=== PATIENT | female | born 1995 | race Caucasian/White ===

== ENCOUNTER 2020-02-24 09:10 | Observation (INO) | payer MEDICAID ==
[2020-02-25] MEDS ORDERED: PREN-96 PO (21:58)
[2020-02-25] MEDS ORDERED: IRON150T2 PO (21:58)
== END 2020-02-24 11:10 | disposition home or self-care (01) | DRG 566 ==
LOC: LDRP 09:10
PROVIDERS: ADMIT Obstetrics & Gynecology; ATTEND Obstetrics & Gynecology
DX: O36.5930 Maternal care for other known or suspected poor fetal growth, third trimester, not applicable or unspecified (principal); Z3A.40 40 weeks gestation of pregnancy
CPT/HCPCS: 76818; 81002; G0378

== ENCOUNTER 2020-02-24 20:19 | Inpatient (IN) | payer MEDICAID ==
[~2020-02-24] VITALS: Ht 165.1 cm; Wt 73.0 kg
[2020-02-24] MEDS ORDERED: LACT. RINGERS/OXYTOCIN 20UNITS 1,000 ML IV SCH (20:24)
[2020-02-24] MEDS ORDERED: LACTATED RINGER'S 1,000 ML IV SCH (20:24)
[2020-02-24] MEDS ORDERED: METHYLERGONOVINE MALEATE 0.2 MG/ML AMP IM PRN (20:30)
[2020-02-24] MEDS ORDERED: PHISODERM TOP SOLN 240ML BTL TOP PRN (20:30)
[2020-02-24] MEDS ORDERED: LIDOCAINE 2%HCL (LOCAL ANESTH.) INJ 20ML MDV ID ONE (20:30)
[2020-02-24] MEDS ORDERED: PENICILLIN G POT 5MIL/D5 50ML 50 ML IV ONE (20:30)
[2020-02-24] MEDS ORDERED: WITCH HAZEL-GLYCERIN PAD TOP PRN (20:30)
[2020-02-24] MEDS ORDERED: DERMOPLAST 60ML BOTTLE TOP PRN (20:30)
[2020-02-24] MEDS ORDERED: miSOPROStol 50 MCG per PRE-CUT 1/2 TAB PO PRN (21:00)
[2020-02-24 21:29] LABS: Basophils # (auto) 0 10 ^3/uL (0-0.2); Basophils % (auto) 0.1 % (0.0-2.0); Eosinophils # (auto) 0 10 ^3/uL (0-0.8); Eosinophils % (auto) 0.5 % (0.0-7.0); Hematocrit 35.7 % (36.0-46.0); Hemoglobin 11.6 g/dL (12.2-16.2); Lymphocytes # (auto) 1.5 10 ^3/uL (0.4-5.4); Lymphocytes % (auto) 18.7 % (10.0-50.0); Mean Corpuscular Hemoglobin 27.1 pg (28.0-32.0); Mean Corpuscular Hgb Conc. 32.4 g/dL (32.0-36.0); Mean Corpuscular Volume 83.6 fL (80.0-100.0); Monocytes # (auto) 0.5 10 ^3/uL (0-1.3); Monocytes % (auto) 5.8 % (0.0-12.0); Neutrophils # (auto) 5.8 10 ^3/uL (1.6-8.6); Neutrophils % (auto) 74.9 % (37.0-80.0); Platelet Count (auto) 205 10^3/uL (140-450); Red Blood Cells 4.27 10^6/uL (4.0-5.20); Red Cell Distribution Width 16.2 % (11.8-14.3); White Blood Cell 7.8 10^3/uL (4.4-10.8)
[2020-02-24 21:34] LABS: Urine Bacteria NONE SEEN /hpf (None Seen); Urine Blood Negative /uL (Negative); Urine Hyaline Cast FEW /lpf (0 - 2); Urine Mucus FEW (None Seen); Urine Specific Gravity 1.026 (1.001-1.035); Urine WBC 5 /hpf (0 - 5)
[2020-02-24 21:43] LABS: INR 0.98 (0.9-1.15); Partial Thromboplastin Time 22.8 sec (23.64-32.05)
[2020-02-24 21:46] LABS: Amphetamine Screen, Urine NEGATIVE (NEGATIVE); Barbiturate Scree,Urine NEGATIVE (NEGATIVE); Benzodiazephine Screen, Urine NEGATIVE (NEGATIVE); Cannabinoid Screen, Urine NEGATIVE (NEGATIVE); Cocaine Screen, Urine NEGATIVE (NEGATIVE); Opiate Scree,Urine NEGATIVE (NEGATIVE); Phencyclidine Screen, Urine NEGATIVE (NEGATIVE)
[2020-02-24 21:47] LABS: Albumin 2.8 g/dL (3.4-5.0); Calcium 8.4 mg/dL (8.5-10.1); Potassium 3.5 mmol/L (3.5-5.1); Uric Acid 2.6 mg/dL (2.6-6.0)
[2020-02-24 21:50] LABS: BUN/Creatinine Ratio 13.8; Bilirubin, Total 0.4 mg/dL (0.2-1.0); Total Protein 7.1 g/dL (6.4-8.2)
[2020-02-25] MEDS ORDERED: fentaNYL 200mCg/100ml W ROPIVA 100 ML EPI SCH ×3 (02:00→03:00)
[2020-02-25] MEDS ORDERED: LIDOCAINE HCL 2 %PF INJ 10ML AMP IJ ONE (02:00)
[2020-02-25] MEDS ORDERED: fentaNYL CITRATE 100 MCG/2 ML VL IV ONE (02:00)
[2020-02-25] MEDS ORDERED: SODIUM CHLORIDE 0.9% 500 ML IV PRN (02:52)
[2020-02-25] MEDS ORDERED: LACTATED RINGER'S 1,000 ML IV ONE (02:52)
[2020-02-25] MEDS: PENICILLIN G POTASSIUM 2,500,000 UNITS in D5W 5% 50 ML IV SCH ×2 (02:53→04:30)
[2020-02-25] MEDS ORDERED: ePHEDrine SULFATE 50 MG/ML AMP IV ONE ×2 (03:00)
[2020-02-25] MEDS ORDERED: LIDOCAINE W/ EPINEPHRINE 1 % INJ 30ML IJ ONE (03:00)
[2020-02-25] MEDS ORDERED: NALOXONE HCL 0.4 MG/ML VIAL IV ONE ×2 (03:00)
[2020-02-25] MEDS ORDERED: ACETAMINOPHEN 325 MG TAB PO PRN (06:45)
[2020-02-25 07:08] VITALS: BP 106/68
[2020-02-25 10:32] VITALS: BP 97/54
[2020-02-25 10:36] LABS: Alcohol, Urine < 3.0 mg/dL (0-5); Amphetamine Screen, Urine NEGATIVE (NEGATIVE); Barbiturate Scree,Urine NEGATIVE (NEGATIVE); Benzodiazephine Screen, Urine NEGATIVE (NEGATIVE); Cannabinoid Screen, Urine NEGATIVE (NEGATIVE); Cocaine Screen, Urine NEGATIVE (NEGATIVE); Opiate Scree,Urine NEGATIVE (NEGATIVE); Phencyclidine Screen, Urine NEGATIVE (NEGATIVE)
[2020-02-25 14:10] VITALS: BP 100/58
[2020-02-25] MEDS: IBUPROFEN 600 MG TAB PO PRN ×2 (18:10→22:31)
[2020-02-25 19:00] VITALS: BP 104/61
[2020-02-25] MEDS ORDERED: IRON150T2 PO (21:58)
[2020-02-25] MEDS ORDERED: PREN-96 PO (21:58)
[2020-02-25 23:00] VITALS: BP 102/63
[2020-02-26] MEDS: IBUPROFEN 600 MG TAB PO PRN (02:57)
[2020-02-26 03:00] VITALS: BP 104/61
[2020-02-26 04:06] LABS: RPR Non Reactive (Non Reactive)
[2020-02-26 06:28] VITALS: BP 101/56
[2020-02-26 09:18] VITALS: BP 106/72
== END 2020-02-26 10:30 | disposition home or self-care (01) | DRG 560 ==
LOC: LDRP 20:19
PROVIDERS: ADMIT Obstetrics & Gynecology; ATTEND Obstetrics & Gynecology
PROC: 00HU33Z Insertion of Infusion Device into Spinal Canal, Percutaneous Approach (ICD-10-PCS; principal; 2020-02-25)
PROC: 10E0XZZ Delivery of Products of Conception, External Approach (ICD-10-PCS; 2020-02-25)
PROC: 0HQ9XZZ Repair Perineum Skin, External Approach (ICD-10-PCS; 2020-02-25)
PROC: 3E0R3BZ Introduction of Anesthetic Agent into Spinal Canal, Percutaneous Approach (ICD-10-PCS; 2020-02-25)
DX: O69.81X0 Labor and delivery complicated by cord around neck, without compression, not applicable or unspecified (principal); O36.5930 Maternal care for other known or suspected poor fetal growth, third trimester, not applicable or unspecified; Z37.0 Single live birth; Z3A.40 40 weeks gestation of pregnancy; O70.0 First degree perineal laceration during delivery
CPT/HCPCS: 36415; 51702; 59025; 59409; 62282; 80053; 80307; 81001; 81002; 84112; 84550; 85025; 85610; 85730; 86592; 86850; 86900; 86901; 94760; 96365; 96366; G0378; J2540; J2590; J7060

== ENCOUNTER 2021-03-26 05:25 | Observation (INO) | payer MEDICAID ==
[~2021-03-26] VITALS: Ht 165.1 cm; Wt 72.6 kg
[~2021-03-26 05:25] MED LIST: IRON150T2 PO; PREN-96 PO
[2021-03-26] MEDS ORDERED: TERBUTALINE SULFATE 1 MG/ML 1ML VIAL SC SCH (06:45)
[2021-03-26] MEDS ORDERED: LACTATED RINGER'S 1,000 ML IV ONE (06:45)
[2021-03-26] MEDS ORDERED: TERBUTALINE SULFATE 1 MG/ML 1ML VIAL SC ONE (06:56)
[2021-03-26 07:36] LABS: Basophils # (auto) 0 10 ^3/uL (0-0.2); Basophils % (auto) 0.1 % (0.0-2.0); Eosinophils # (auto) 0.1 10 ^3/uL (0-0.8); Hemoglobin 8.6 g/dL (12.2-16.2); Mean Corpuscular Hemoglobin 23.3 pg (28.0-32.0); Mean Corpuscular Volume 72.6 fL (80.0-100.0); Neutrophils # (auto) 3.5 10 ^3/uL (1.6-8.6); Platelet Count (auto) 172 10^3/uL (140-450)
[2021-03-26 07:38] LABS: Eosinophils % (auto) 0.8 % (0.0-7.0); Hematocrit 26.7 % (36.0-46.0); Lymphocytes % (auto) 34.1 % (10.0-50.0); Mean Corpuscular Hgb Conc. 32.1 g/dL (32.0-36.0); Monocytes # (auto) 0.4 10 ^3/uL (0-1.3); Monocytes % (auto) 6.1 % (0.0-12.0); Neutrophils % (auto) 58.9 % (37.0-80.0); Red Blood Cells 3.68 10^6/uL (4.0-5.20); Red Cell Distribution Width 16.7 % (11.8-14.3)
[2021-03-26 07:51] LABS: Albumin 2.5 g/dL (3.4-5.0); Calcium 8.2 mg/dL (8.5-10.1); Potassium 3.5 mmol/L (3.5-5.1)
[2021-03-26 07:56] LABS: BUN/Creatinine Ratio 16.7; Bilirubin, Total 0.3 mg/dL (0.2-1.0); Total Protein 6.8 g/dL (6.4-8.2)
[2021-03-26 08:20] LABS: INR 0.95 (0.9-1.15); Partial Thromboplastin Time 21.7 sec (23.0-31.2)
[2021-03-26] MEDS ORDERED: ceFAZolin 1GM/50ML 0 ML IV ONE (08:39)
[2021-03-26] MEDS ORDERED: AMPICILLIN SOD 1 GM VL ONE (08:40)
[2021-03-26] MEDS ORDERED: AMPICILLIN INJ 1 GM in SODIUM CHL 0.9% 50 ML IV ONE (09:00)
[2021-03-26] MEDS ORDERED: BETAMETHASONE ACET (6MG/ML) 5ML VIAL IM SCH (10:00)
== END 2021-03-26 09:50 | disposition short-term general hospital (02) ==
LOC: LDRP 05:25
PROVIDERS: ADMIT Obstetrics & Gynecology; ATTEND Obstetrics & Gynecology
DX: O42.913 Preterm premature rupture of membranes, unspecified as to length of time between rupture and onset of labor, third trimester (principal); Z20.822 Contact with and (suspected) exposure to COVID-19; Z3A.36 36 weeks gestation of pregnancy
CPT/HCPCS: 36415; 59025; 76805; 76818; 80053; 81002; 84112; 85025; 85610; 85730; 86850; 86900; 86901; 87426; 94760; 96360; 96372; G0378; J0290; J0702; J3105; Q0114; U0003; 96361; 96365; 96366; J0690

== ENCOUNTER 2023-08-29 08:52 | Inpatient (IN) | payer MEDICAID ==
[~2023-08-29] VITALS: Ht 165.1 cm; Wt 68.0 kg
[2023-08-29] MEDS ORDERED: LACTATED RINGER'S 1,000 ML IV SCH (09:30)
[2023-08-29] MEDS ORDERED: BUTORPHANOL TARTRATE 2 MG/1 ML VIAL IV PRN ×2 (09:30)
[2023-08-29] MEDS ORDERED: WITCH HAZEL-GLYCERIN PAD TOP PRN (09:30)
[2023-08-29] MEDS ORDERED: LIDOCAINE 2%HCL (LOCAL ANESTH.) INJ 20ML MDV IJ PRN (09:30)
[2023-08-29] MEDS ORDERED: LACT. RINGERS/OXYTOCIN 20UNITS 500 ML IV ONE ×2 (09:30→10:00)
[2023-08-29] MEDS ORDERED: PROMETHAZINE HCL 25 MG/ML 1ML IV PRN (09:30)
[2023-08-29] MEDS ORDERED: DERMOPLAST 60ML BOTTLE TOP PRN (09:30)
[2023-08-29] MEDS ORDERED: PHISODERM TOP SOLN 240ML BTL TOP PRN (09:30)
[2023-08-29] MEDS ORDERED: PENICILLIN G POT 5MIL/D5 50ML 50 ML IV ONE (10:00)
[2023-08-29 10:05] LABS: Basophils # (auto) 0 10 ^3/uL (0-0.2); Eosinophils # (auto) 0 10 ^3/uL (0-0.8); Hemoglobin 7.5 g/dL (12.2-16.2); Lymphocytes # (auto) 1.9 10 ^3/uL (0.4-5.4); Monocytes # (auto) 0.5 10 ^3/uL (0-1.3); Neutrophils # (auto) 6.5 10 ^3/uL (1.6-8.6); Neutrophils % (auto) 72.7 % (37.0-80.0)
[2023-08-29 10:20] LABS: Basophils % (auto) 0.2 % (0.0-2.0); Eosinophils % (auto) 0.3 % (0.0-7.0); Lymphocytes % (auto) 21.6 % (10.0-50.0); Mean Corpuscular Hemoglobin 18.2 pg (28.0-32.0); Mean Corpuscular Volume 60.7 fL (80.0-100.0); Monocytes % (auto) 5.2 % (0.0-12.0); Red Blood Cells 4.12 10^6/uL (4.0-5.20); Red Cell Distribution Width 19.4 % (11.8-14.3)
[2023-08-29 10:22] LABS: INR 0.95 (0.9-1.15); Partial Thromboplastin Time 22.3 SEC (24.5-34.5)
[2023-08-29 10:24] LABS: Urine Bacteria NONE SEEN /hpf (None Seen); Urine Blood Negative /uL (Negative); Urine Clarity Clear (Clear); Urine Color Yellow (Yellow); Urine Mucus FEW (None Seen); Urine Protein, UAD TRACE (Negative); Urine Specific Gravity 1.027 (1.001-1.035); Urine WBC 1 /hpf (0 - 5); Urine pH 6.5 (5.0-8.0)
[2023-08-29 10:31] LABS: Albumin 4.2 g/dL (3.2-4.8); Alkaline Phosphatase 118 U/L (46-116); Anion Gap 8 (5-15); Aspartate Aminotransferase 16 U/L (13-40); BUN/Creatinine Ratio 9.3 (10.0-20.0); Bilirubin, Total 0.5 mg/dL (0.2-1.0); Blood Urea Nitrogen 5 mg/dL (9-23); Calcium 8.9 mg/dL (8.5-10.1); Carbon Dioxide 23 mmol/L (20-30); Chloride 106 mmol/L (98-107); Glucose 75 mg/dL (74-106); Potassium 3.6 mmol/L (3.5-5.1); Sodium 137 mmol/L (136-145)
[2023-08-29 10:32] LABS: Total Protein 6.8 g/dL (5.7-8.2)
[2023-08-29 10:39] LABS: Amphetamine Screen, Urine Neg (NEGATIVE)
[2023-08-29 10:40] LABS: Barbiturate Scree,Urine Neg (NEGATIVE); Benzodiazephine Screen, Urine Neg (NEGATIVE); Cannabinoid Screen, Urine Neg (NEGATIVE); Cocaine Screen, Urine Neg (NEGATIVE); Opiate Scree,Urine Neg (NEGATIVE); Phencyclidine Screen, Urine Neg (NEGATIVE)
[2023-08-29] MEDS ORDERED: ePHEDrine SULFATE 50 MG/ML AMP IV ONE (10:45)
[2023-08-29] MEDS ORDERED: NALOXONE HCL 0.4 MG/ML VIAL IV ONE (10:45)
[2023-08-29] MEDS ORDERED: LIDOCAINE HCL 2 %PF INJ 10ML AMP IJ ONE (10:45)
[2023-08-29] MEDS ORDERED: ROPIVACAINE HCL 200 ML EPI SCH (10:45)
[2023-08-29] MEDS ORDERED: LACTATED RINGER'S 500 ML IV ONE (10:45)
[2023-08-29 11:16] LABS: Alanine Aminotransferase < 9 U/L (7-40)
[2023-08-29] MEDS ORDERED: ACETAMINOPHEN 325 MG TAB PO PRN (11:45)
[2023-08-29] MEDS: IBUPROFEN 600 MG TAB PO PRN ×2 (11:55→20:05)
[2023-08-29 13:00] VITALS: PULSE 76; RESP 18; O2SAT 99
[2023-08-29] MEDS ORDERED: PENICILLIN G POTASSIUM 2,500,000 UNITS in D5W 5% 50 ML IV SCH (14:00)
[2023-08-29 19:00] VITALS: BP 100/55; PULSE 85; RESP 18; TEMP 98; O2SAT 99
[2023-08-29] MEDS ORDERED: DOCUSATE SOD 100 MG CAP PO SCH (22:00)
[2023-08-29 23:00] VITALS: BP 101/61; PULSE 88; RESP 18; TEMP 98.1; O2SAT 99
[2023-08-30 03:00] VITALS: BP 99/60; PULSE 84; RESP 18; TEMP 97.6; O2SAT 98
[2023-08-30 07:05] VITALS: BP 104/56; PULSE 86; RESP 17; TEMP 98.2; O2SAT 98
[2023-08-30 07:07] LABS: Rubella Antibodies, IgG 7.75 index (Immune >0.99)
[2023-08-30 07:59] LABS: Basophils # (auto) 0 10 ^3/uL (0-0.2); Basophils % (auto) 0.3 % (0.0-2.0); Eosinophils # (auto) 0.1 10 ^3/uL (0-0.8); Eosinophils % (auto) 0.8 % (0.0-7.0); Hematocrit 22.2 % (36.0-46.0); Lymphocytes # (auto) 2.2 10 ^3/uL (0.4-5.4); Lymphocytes % (auto) 23.6 % (10.0-50.0); Mean Corpuscular Hemoglobin 18.8 pg (28.0-32.0); Mean Corpuscular Hgb Conc. 30.8 g/dL (32.0-36.0); Mean Corpuscular Volume 61.2 fL (80.0-100.0); Monocytes # (auto) 0.5 10 ^3/uL (0-1.3); Monocytes % (auto) 5.6 % (0.0-12.0); Neutrophils # (auto) 6.5 10 ^3/uL (1.6-8.6); Neutrophils % (auto) 69.7 % (37.0-80.0); Nucleated Red Blood Cells % 0.1 %; Red Blood Cells 3.62 10^6/uL (4.0-5.20); Red Cell Distribution Width 19.2 % (11.8-14.3); White Blood Cell 9.3 10^3/uL (4.4-10.8)
[2023-08-30 08:05] LABS: Hemoglobin 6.8 g/dL (12.2-16.2)
[2023-08-30 08:06] LABS: RPR Non Reactive (Non Reactive)
[2023-08-30] MEDS: IBUPROFEN 600 MG TAB PO PRN (08:37)
[2023-08-30] MEDS ORDERED: FERROUS SULFATE 325mg EC TAB PO SCH (10:00)
[2023-08-30 11:00] VITALS: BP 96/58; PULSE 89; RESP 18; TEMP 97.8; O2SAT 99
[2023-08-30 15:00] VITALS: BP 99/50; PULSE 87; RESP 17; TEMP 97.7; O2SAT 99
[2023-08-30] MEDS ORDERED: SODIUM FERR GLUC 62.5MG/5ML 125 MG in SODIUM CHL 0.9% 100 ML IV STA (15:28)
[2023-08-30] MEDS ORDERED: FERR30CA PO (15:33)
[2023-08-30] MEDS ORDERED: IBU600T PO (15:33)
[2023-08-30] MEDS ORDERED: DOCU-265 PO (15:33)
[2023-08-30 16:00] VITALS: BP 99/50; PULSE 87; RESP 17; TEMP 97.7; O2SAT 99
[2023-08-31 19:06] LABS: Treponema pallidum Ab (FTA-Ab) Non Reactive (Non Reactive)
== END 2023-08-30 19:15 | disposition home or self-care (01) | DRG 560 ==
LOC: LDRP 08:52 → OBSVTOIN 09:28
PROVIDERS: ADMIT Obstetrics & Gynecology; ATTEND Obstetrics & Gynecology
PROC: 10E0XZZ Delivery of Products of Conception, External Approach (ICD-10-PCS; principal; 2023-08-29)
DX: O99.02 Anemia complicating childbirth (principal); Z37.0 Single live birth; D50.9 Iron deficiency anemia, unspecified; Z3A.39 39 weeks gestation of pregnancy
CPT/HCPCS: 36415; 59025; 59409; 80053; 80307; 81001; 81002; 85025; 85610; 85730; 86592; 86703; 86762; 86850; 86900; 86901; 87340; 94760; 96360; 96361; 96365; 96366; G0378; J2540; J2590; J7060